=== PATIENT | male | born 1995 | race Caucasian/White ===

== ENCOUNTER → 2020-11-30 | Outpatient (CLI) | payer OTHER | LOC: MHCPAIN 09:36 | DX: M47.817 Spondylosis without myelopathy or radiculopathy, lumbosacral region (principal); M53.3 Sacrococcygeal disorders, not elsewhere classified; G89.29 Other chronic pain | CPT/HCPCS: G0463 ==

== ENCOUNTER 2022-03-14 22:17 | Emergency (ER) | payer OTHER ==
[~2022-03-14] VITALS: Ht 182.9 cm; Wt 85.9 kg
[2022-03-14 22:25] VITALS: TEMP 98.4
[2022-03-14] MEDS ORDERED: ATIVAN 1MG T1 MG/TAB PO (22:44)
[2022-03-15] VITALS: BP 112/61; PULSE 80
== END 2022-03-15 00:30 | disposition home or self-care (01) ==
LOC: COL.ER 22:17
DX: F41.9 Anxiety disorder, unspecified (principal)